=== PATIENT | female | born 1960 | race American Indian/Alaskan Native ===

== ENCOUNTER 2017-03-29 09:03 | Outpatient (CLI) | payer OTHER ==
--- NOTE | 2017-03-29 12:51 | Mammography Report ---
Spot compression magnification of asymmetric density is mid and lower right breast followed by global right sonogram: Findings: There is asymmetric density, partially obscured by glandular parenchyma, noted at posterior right mid breast and lower and upper right mid breast. Sonographic examination reveals a cluster of cysts measuring 1.3 x 0.4 x 0.8 cm in diameter at approximate 5:30 o'clock 2.5 cm from nipple. There is a second cyst identified at 9:00 position 2 cm from nipple measuring 0.5 x 0.4 x 0.4 cm. May be corresponding to the density seen on spot magnification views. In the retroareolar area there is dilated duct noted with an intraductal mass measuring 0.4 x 0.3 x 0.5 cm. Impression: Cystic masses identified the right breast appear benign. Six-month followup with sonogram and right mammogram recommended. Ductogram is recommended to evaluate the intraductal mass in the retroareolar right breast. BI-RADS CATEGORY: 0 = Needs additional imaging evaluation ACR BI-RADS MAMMOGRAPHIC CODES: 0 = Needs additional imaging evaluation; 1 = Negative; 2 = Benign; 3 = Probably benign; 4 = Suspicious; 5 = Malignant; 6 = Known biopsy-proven malignancy COMMENT: 1. Dense breast tissue, i.e., adenosis, fibrocystic changes, etc., may obscure an underlying neoplasm. 2. Approximately 10% of cancers are not detected with mammography. 3. A negative mammography report should not delay biopsy if a clinically suspicious mass is present.
--- NOTE | 2017-03-30 13:56 | Ultrasound Report ---
Spot compression magnification of asymmetric density is mid and lower right breast followed by global right sonogram: Findings: There is asymmetric density, partially obscured by glandular parenchyma, noted at posterior right mid breast and lower and upper right mid breast. Sonographic examination reveals a cluster of cysts measuring 1.3 x 0.4 x 0.8 cm in diameter at approximate 5:30 o'clock 2.5 cm from nipple. There is a second cyst identified at 9:00 position 2 cm from nipple measuring 0.5 x 0.4 x 0.4 cm. May be corresponding to the density seen on spot magnification views. In the retroareolar area there is dilated duct noted with an intraductal mass measuring 0.4 x 0.3 x 0.5 cm. Impression: Cystic masses identified the right breast appear benign. Six-month followup with sonogram and right mammogram recommended. Ductogram is recommended to evaluate the intraductal mass in the retroareolar right breast. BI-RADS CATEGORY: 0 = Needs additional imaging evaluation ACR BI-RADS MAMMOGRAPHIC CODES: 0 = Needs additional imaging evaluation; 1 = Negative; 2 = Benign; 3 = Probably benign; 4 = Suspicious; 5 = Malignant; 6 = Known biopsy-proven malignancy COMMENT: 1. Dense breast tissue, i.e., adenosis, fibrocystic changes, etc., may obscure an underlying neoplasm. 2. Approximately 10% of cancers are not detected with mammography. 3. A negative mammography report should not delay biopsy if a clinically suspicious mass is present. Addendum #1 Addendum: Instead of ductogram of the mass in the retroareolar duct, biopsy under sonographic examination may be advised
== END 2017-03-29 09:04 | disposition home or self-care (01) ==
LOC: SPVWC 09:03
PROVIDERS: ATTEND Internal Medicine
DX: N60.01 Solitary cyst of right breast (principal); R92.2 Inconclusive mammogram
CPT/HCPCS: 76641; G0206

== ENCOUNTER 2017-05-03 12:40 | Outpatient (CLI) | payer OTHER ==
--- NOTE | 2017-05-03 14:05 | Ultrasound Report ---
VACUUM ASSISTED ULTRASOUND GUIDED NEEDLE CORE BIOPSY WITH CLIP PLACEMENT RIGHT BREAST: 05/03/17 12:40:00 CLINICAL: A 5 mm retroareolar intraductal mass. COMPARISON :03/29/17 FINDINGS: The procedure was explained to the patient and informed consent was obtained. Ultrasound demonstrated the previously described retroareolar mass. The skin was prepped with Betadine and anesthetized with 1% lidocaine. Vacuum-assisted needle core biopsy was performed through a small dermatotomy using ultrasound guidance, 2% lidocaine with epinephrine for deep anesthesia and a 13-gauge Mammotome Elite biopsy probe. Multiple cores were obtained and placed in formalin. A hydro-james clip was deployed at the site. Hemostasis was achieved with minimal pressure and a sterile dressing was applied. The patient tolerated the procedure well and there were no apparent complications. A post biopsy mammogram was not obtained. The patient left the department in good condition and was given instructions for wound care and follow up. IMPRESSION: Uncomplicated vacuum-assisted ultrasound core biopsy with clip placement right breast.
--- NOTE | 2017-05-03 14:17 | Mammography Report ---
RIGHT DIGITAL DIAGNOSTIC MAMMOGRAM: 05/03/17 12:40:00 CLINICAL: For clip placement immediately status post ultrasound biopsy. COMPARISON:03/29/17 FINDINGS: A retroareolar biopsy clip is now identified and correlates with the site of ultrasound biopsy. IMPRESSION: Concordant clip placement status post ultrasound biopsy. BI-RADS CATEGORY: 4--Suspicious Pathology pending.
== END 2017-05-03 12:41 | disposition home or self-care (01) ==
LOC: SPVWC 12:40
PROVIDERS: ATTEND Surgery
DX: N63 Unspecified lump in breast (principal)
CPT/HCPCS: 19083; A4648; G0206; 88305

== ENCOUNTER 2018-06-02 07:40 | Outpatient (CLI) | payer OTHER ==
--- NOTE | 2018-06-02 10:53 | Mammography Report ---
BILATERAL DIGITAL DIAGNOSTIC MAMMOGRAM with CAD and DIGITAL BREAST TOMOSYNTHESIS (DBT) and RIGHT BREAST ULTRASOUND: 06/02/18 07:40:00 CLINICAL: Followup after right vacuum-assisted needle biopsy on 05/03/17 revealed benign papilloma. The lesion has not been surgically excised. COMPARISON:Right diagnostic mammograms from 05/03/17 and 03/29/17 and bilateral mammogram screening from 03/29/17. FINDINGS: The breasts are mostly fatty with a few scattered bilateral fibroglandular densities and a few bilateral scattered benign calcifications.A right retroareolar biopsy clip with no mammographic finding at the clip. No mass, architectural distortion or suspicious calcifications. Ultrasound of the right retroareolar breast demonstrated mild duct ectasia with a biopsy clip. No mass, cyst or shadowing. IMPRESSION: Negative mammogram and negative right targeted retroareolar breast ultrasound. BI-RADS CATEGORY: 2 - - Benign RECOMMENDATION: Routine mammographic screening in one year. COMMENT: Patient follow-up letters are generated by our [employer] application.
== END 2018-06-02 07:41 | disposition home or self-care (01) ==
LOC: SPVWC 07:40
PROVIDERS: ATTEND Internal Medicine
DX: R92.8 Other abnormal and inconclusive findings on diagnostic imaging of breast (principal)
CPT/HCPCS: 76642; 77066; G0279

== ENCOUNTER 2019-10-25 09:07 | Outpatient (CLI) | payer OTHER ==
--- NOTE | 2019-10-25 10:16 | XRay Report ---
LEFT SHOULDER 3 VIEWS INDICATION / CLINICAL INFORMATION: Left shoulder injury. History of left shoulder surgery in 2011. COMPARISON: None available. FINDINGS: BONES and JOINT(S): No acute fracture or subluxation. Mild posterior arthritis is seen along the AC j oint. There is severe osteoarthritis along the humeral joint. SOFT TISSUES: No significant abnormality. ADDITIONAL FINDINGS: None. IMPRESSION: Severe osteoarthritis of the left shoulder. Signer Name: Sean Connors MD Signed: 10/25/2019 10:11 AM Workstation Name: [email or web address]
--- NOTE | 2019-10-25 10:17 | XRay Report ---
RIGHT KNEE 2 VIEWS INDICATION / CLINICAL INFORMATION: Right foot numbness. History of right knee replacement in 2018. COMPARISON: None available. FINDINGS: BONES and JOINT(S): No acute fracture or subluxation. No significant arthritis. A total knee arthropl asty appears intact and in good position. SOFT TISSUES: No significant abnormality. ADDITIONAL FINDINGS: None. IMPRESSION: 1. No acute findings. 2. Unremarkable appearing right total knee arthroplasty. Signer Name: Sean Connors MD Signed: 10/25/2019 10:13 AM Workstation Name: [email or web address]
== END 2019-10-25 09:08 | disposition home or self-care (01) ==
LOC: XRAY 09:07
PROVIDERS: ATTEND Internal Medicine
DX: S49.92XA Unspecified injury of left shoulder and upper arm, initial encounter (principal); M19.012 Primary osteoarthritis, left shoulder; M54.30 Sciatica, unspecified side; R20.0 Anesthesia of skin; I10 Essential (primary) hypertension; Z96.651 Presence of right artificial knee joint; X58.XXXA Exposure to other specified factors, initial encounter; Y93.89 Activity, other specified; Y92.89 Other specified places as the place of occurrence of the external cause; Y99.8 Other external cause status